=== PATIENT | female | born 1955 | race Caucasian/White ===

== ENCOUNTER 2022-01-30 12:24 | Emergency (ER) | payer MEDICARE, BC ==
[~2022-01-30] VITALS: Ht 144.8 cm; Wt 50.0 kg
[2022-01-30] MEDS ORDERED: HYDRALAZINE HCL 25MG TABLET PO ONE (13:45)
[2022-01-30 15:22] LABS: CHLORIDE 113 mEq/L (98-107)
[2022-01-30 15:29] LABS: BASOPHILS % 0.9 % (0.0-2.0); EOSINOPHILS % 1.3 % (0.0-5.0); HEMATOCRIT. 34.1 % (36.0-48.0); LYMPHOCYTES % 21.7 % (20.0-50.0); MEAN CORPUSCULAR HEMOGLOBIN 25.2 pg (28.0-32.0); MEAN CORPUSCULAR VOLUME 78.1 fL (81.0-99.0); MONOCYTES % 6.5 % (2.0-8.0); NEUTROPHILS % 69.6 % (40.0-76.0); RED BLOOD CELL COUNT 4.36 mill/uL (4.2-5.4); RED CELL DISTRIBUTION WIDTH 15.5 % (11.6-14.6)
[2022-01-30 16:08] VITALS: BP 171/78
[2022-01-30 19:23] LABS: MEAN PLATELET VOLUME 8.6 fl (7.4-10.4); PLATELET 203 x1000/uL (130-400)
== END 2022-01-30 16:43 | disposition home or self-care (01) ==
LOC: ER 14:28
DX: I10 Essential (primary) hypertension (principal); I25.10 Atherosclerotic heart disease of native coronary artery without angina pectoris; Z98.61 Coronary angioplasty status
CPT/HCPCS: 36415; 71045; 80053; 83880; 84484; 85025; 93005; 99285